=== PATIENT | male | born 2000 | race Two or more races ===

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

== ENCOUNTER 2020-02-10 09:57 | Emergency (ER) | payer MEDICAID, OTHER ==
[~2020-02-10] VITALS: Ht 167.6 cm; Wt 78.0 kg
--- NOTE | 2020-02-10 11:37 | NUR ---
TO ROOM VIA WC
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
--- NOTE | 2020-02-10 12:03 | NUR ---
chart up for MD recheck
--- NOTE | 2020-02-10 12:15 | NUR ---
Dr. Villela has been to bedside for recheck
[2020-02-10 12:44] VITALS: BP 117/61
== END 2020-02-10 12:50 | disposition home or self-care (01) ==
LOC: ED 12:39
DX: S39.012A Strain of muscle, fascia and tendon of lower back, initial encounter (principal); S80.02XA Contusion of left knee, initial encounter; V49.49XA Driver injured in collision with other motor vehicles in traffic accident, initial encounter; Y93.89 Activity, other specified; Y92.488 Other paved roadways as the place of occurrence of the external cause; Y99.8 Other external cause status
CPT/HCPCS: 72110; 99284

== ENCOUNTER 2020-07-26 14:34 | Emergency (ER) | payer MEDICAID, OTHER ==
[~2020-07-26] VITALS: Ht 167.6 cm; Wt 74.7 kg
--- NOTE | 2020-07-26 15:34 | NUR ---
CONVENTIONS ASSISTANT: PT TO ROOM FROM LOBBY
--- NOTE | 2020-07-26 16:18 | NUR ---
BREAK RN: DR. PARKER AT BEDSIDE FOR EVAL.
[2020-07-26] MEDS ORDERED: KETOROLAC 30 MG/1 ML IM ONE (16:30)
[2020-07-26 16:41] LABS: BASOPHILS % (AUTO) 0 % (0-1); EOSINOPHILS % (AUTO) 0 % (1-7); LYMPHOCYTES % (AUTO) 18 % (22-44); MEAN CORPUSCULAR HEMOGLOBIN 30.6 pg (27.5-34.5); MEAN CORPUSCULAR HGB CONC 34.4 g/dL (33.2-36.2); MEAN PLATELET VOLUME 8.5 fL (7.4-10.4); MONOCYTES % (AUTO) 5 % (2-9); NEUTROPHILS % (AUTO) 77 % (42-75); PLATELET COUNT 290 x10^3/uL (130-400); RED BLOOD COUNT 5.77 x10^6/uL (4.38-5.82); RED CELL DISTRIBUTION WIDTH 13.5 % (9.4-14.8)
[2020-07-26] MEDS ORDERED: KETOROLAC 60 MG/2 ML ONE (16:47)
[2020-07-26 16:51] LABS: ALANINE AMINOTRANSFERASE 25 U/L (12-78); ALBUMIN 4.1 g/dL (3.4-5.0); ANION GAP 5 mmol/L (5-15); CALCIUM 9.2 mg/dL (8.5-10.1); CHLORIDE 107 mmol/L (98-107); CREATININE 0.96 mg/dL (0.7-1.3)
[2020-07-26 16:54] LABS: ALKALINE PHOSPHATASE 118 U/L (45-117); BILIRUBIN,TOTAL 0.4 mg/dL (0.2-1.0)
--- NOTE | 2020-07-26 16:56 | NUR ---
LAYING DOWN: HR 72 BP 111/53 STANDING UP: HR BRIEFLY JOHN TO 108 BUT THEN LOWERED TO 78. BP WAS 122/79
[2020-07-26 17:01] VITALS: BP 111/73
== END 2020-07-26 17:26 | disposition home or self-care (01) ==
LOC: ED 17:20
DX: R51.9 Headache, unspecified (principal); E86.0 Dehydration
CPT/HCPCS: 36415; 80053; 85025; 93005; 96372; 99283; J1885

== ENCOUNTER 2020-11-09 09:57 | Emergency (ER) | payer SELFPAY ==
[~2020-11-09] VITALS: Ht 167.6 cm; Wt 78.3 kg
--- NOTE | 2020-11-09 12:56 | NUR ---
Pt laying in [facility], has been for imaging, call light remains in reach. No complaints or needs at this time.
--- NOTE | 2020-11-09 12:57 | NUR ---
Bedside report to [facility]. To assume full care.
[2020-11-09 14:32] VITALS: BP 120/53
--- NOTE | 2020-11-09 14:44 | NUR ---
Patient given discharge instructions and they have confirmed that they understand the instructions. Patient ambulatory with steady gait. NAD, all questions answered appropriately, denies additional needs at this time. No personal belongings left in room after discharge.
== END 2020-11-09 14:45 | disposition home or self-care (01) ==
LOC: ED 14:00
DX: S06.0X0A Concussion without loss of consciousness, initial encounter (principal); W01.198A Fall on same level from slipping, tripping and stumbling with subsequent striking against other object, initial encounter; Y93.89 Activity, other specified; Y92.89 Other specified places as the place of occurrence of the external cause; Y99.8 Other external cause status
CPT/HCPCS: 70450; 99283